=== PATIENT | female | born 1995 | race American Indian/Alaskan Native ===

== ENCOUNTER 2019-04-27 14:29 | Emergency (ER) | payer OTHER ==
--- NOTE | 2019-04-27 15:04 | Event Note ---
ED Screening Note Date of service: 04/27/19 Time: 15:00 ED Screening Note: 23 y o female at 13 weeks gestation presents for syncopal episode at work today cc of n/v x 1 week no pelvic pain or vag bleed This initial assessment/diagnostic orders/clinical plan/treatment(s) is/are subject to change based on patients health status, clinical progression and re- assessment by fellow clinical providers in the ED. Further treatment and workup at subsequent clinical providers discretion. Patient/guardian urged not to elope from the ED as their condition may be serious if not clinically assessed and managed. Initial orders include: labs,ua IVF
[2019-04-27 15:35] LABS: Basophils % (Auto) 0.6 % (0.0-1.8); Eosinophils # (Auto) 0.1 K/mm3 (0.0-0.4); Eosinophils % (Auto) 1.5 % (0.0-4.3); Hematocrit 32.3 % (30.3-42.9); Lymphocytes # (Auto) 1.6 K/mm3 (1.2-5.4); Lymphocytes % (Auto) 24.9 % (13.4-35.0); Mean Corpuscular HGB Conc 34 % (30-34); Mean Corpuscular Volume 86 fl (79-97); Monocytes # (Auto) 0.4 K/mm3 (0.0-0.8); Platelet Count 286 K/mm3 (140-440); Red Blood Count 3.77 M/mm3 (3.65-5.03)
[2019-04-27 15:46] LABS: BUN/Creatinine Ratio 13; Blood Urea Nitrogen 8 mg/dL (7-17); Calcium 9.4 mg/dL (8.4-10.2); Hemolysis Index 2
[2019-04-27 16:07] LABS: Bacteria,Urine 1+ /HPF (Negative); Bilirubin,Urine SM (Negative); Blood,Urine NEG (Negative); Color,Urine Amber (Yellow); Mucus,Urine 3+ /HPF
[2019-04-27 16:14] LABS: Ictotest,Urine Negative (Negative)
[2019-04-27] MEDS ORDERED: ACETAMINOPHEN 500 MG TAB PO ONE (20:52)
[2019-04-27] MEDS ORDERED: SODIUM CHLORIDE 0.9% 1000 ML 1,000 ML IV ONE (20:52)
[2019-04-27] MEDS ORDERED: ONDANSETRON 4 MG/2 ML INJ IV ONE (20:52)
--- NOTE | 2019-04-27 21:54 | Ultrasound Report ---
ULTRASOUND OBSTETRIC INDICATION: Vaginal discharge. Clinical Gestational Age (GA): 13 weeks, 6 days TECHNIQUE: Transabdominal. COMPARISON: None available. FINDINGS: There is a single intrauterine . Biparietal Diameter = 2.7 cm = 14 weeks, 5 day(s). Head Circumference = 9.7 cm = 14 weeks, 3 day(s). Abdominal Circumference = 7.7 cm = 14 weeks, 1 day(s). Femur Length = 1.4 cm = 14 weeks, 2 day(s). Average Ultrasound Age (AUA) = 14 weeks, 3 day(s). Heart Rate: 143 beats per minute. Position: transverse. Cervix: closed. Length in cm (if measured): 3.6 Placenta: anterior and free of the os. Amniotic Fluid Volume: normal Maternal Adnexa: No significant abnormality. IMPRESSION: 1. Single, living intrauterine with estimated sonographic age of 14 weeks, 3 day(s). 2. No significant sonographic abnormality. Signer Name: Gilberto Schroeder MD Signed: 04/27/2019 9:50 PM Workstation Name: [id number]
--- NOTE | 2019-04-27 23:19 | Emergency Department Report ---
<ABBIE DIALLO - Last Filed: 04/28/19 01:04> ED Syncope HPI - General Chief Complaint: Syncope Stated Complaint: SYNCOPAL EPISODE/13WKS Time Seen by Provider: 04/27/19 19:47 - History of Present Illness Initial Comments: Ms. Thrasher is a 23 y/o aaf who presents s/p syncope witnessed by family members to day, states syncope lasting more than 5 minutes. there was no predromal event, no loss or body fluids, no seizure or hx of seizure, pt is 13 weeks . G1, P0, A0, pt denies fever or chills, or diarrhea , there is some intermitten n/v, intermittent dizziness, and light headedness with rapid change of position. There is no cough, URI, sinusitis, ear pain, or sob. There is no abdominal pain , no vaginal discharge or bleeding, pt states dizziness with attempt to stand for orthostatic blood pressure, Timing/Prior Episodes: no prior history Precipitating Factors: Positive: lightheadedness, nausea Context: sitting Loss of Consciousness: brief (seconds) Current Symptoms: back to normal - Related Data Allergies/Adverse Reactions: Allergies No Known Allergies Allergy (Verified 04/27/19 14:34) Home Medications: Ambulatory Orders Acetaminophen [Acetaminophen TAB] 650 mg PO Q6HR PRN #30 tablet 04/28/19 Nitrofurantoin Luna/M-Cryst [Macrobid CAP] 100 mg PO BID 7 Days #14 capsule 04/28/19 Ondansetron [Zofran Odt] 4 mg PO Q8HR #21 tab.rapdis 04/28/19 diphenhydrAMINE [Benadryl CAP] 25 mg PO Q8HR PRN #21 capsule 04/28/19 metroNIDAZOLE [metroNIDAZOLE VAGINAL 0.75% gel] 1 applicatio VG QHS 7 Days #1 tube 04/28/19 ED Review of Systems Constitutional: denies: chills, fever Eyes: denies: eye pain, eye discharge, vision change ENT: denies: ear pain, throat pain Respiratory: denies: cough, shortness of breath, wheezing Cardiovascular: denies: chest pain, palpitations Endocrine: no symptoms reported Gastrointestinal: denies: abdominal pain, nausea, diarrhea Genitourinary: denies: urgency, dysuria, discharge Musculoskeletal: denies: back pain, joint swelling, arthralgia Skin: denies: rash, lesions Neurological: denies: headache, weakness, numbness, paresthesias, confusion, vertigo Psychiatric: anxiety Hematological/Lymphatic: denies: easy bleeding, easy bruising ED Past Medical Hx - Past Medical History Previous Medical History?: No - Surgical History Past Surgical History?: Yes Additional Surgical History: Ablation - Social History Smoking Status: Never Smoker Substance Use Type: None - Medications Home Medications: Home Medications Medication Instructions Recorded Confirmed Last Taken Type Acetaminophen [Acetaminophen TAB] 650 mg PO Q6HR PRN #30 tablet 04/28/19 Unknown Rx Nitrofurantoin Luna/M-Cryst 100 mg PO BID 7 Days #14 capsule 04/28/19 Unknown Rx [Macrobid CAP] Ondansetron [Zofran Odt] 4 mg PO Q8HR #21 tab.rapdis 04/28/19 Unknown Rx diphenhydrAMINE [Benadryl CAP] 25 mg PO Q8HR PRN #21 capsule 04/28/19 Unknown Rx metroNIDAZOLE [metroNIDAZOLE 1 applicatio VG QHS 7 Days #1 tube 04/28/19 Unknown Rx VAGINAL 0.75% gel] ED Physical Exam - General Limitations: No Limitations General appearance: alert, in no apparent distress - Head Head exam: Present: atraumatic, normocephalic, normal inspection - Eye Eye exam: Present: normal appearance, PERRL, EOMI Pupils: Present: normal accommodation - ENT ENT exam: Present: mucous membranes moist - Neck Neck exam: Present: normal inspection, full ROM. Absent: tenderness, meningismus, lymphadenopathy, thyromegaly - Expanded Neck Exam Expanded Neck exam: Absent: tenderness, midline deformity, anterior neck swelling, thyroid mass, carotid bruit, tracheal deviation - Respiratory Respiratory exam: Present: normal lung sounds bilaterally. Absent: respiratory distress, wheezes, rales, rhonchi, stridor, chest wall tenderness, prolonged expiratory - Cardiovascular Cardiovascular Exam: Present: regular rate, normal rhythm, normal heart sounds. Absent: systolic murmur, diastolic murmur, rubs, gallop - GI/Abdominal GI/Abdominal exam: Present: soft, normal bowel sounds. Absent: distended, tenderness, guarding, rebound, rigid, bruit, hernia - Rectal Rectal exam: Present: deferred - External exam: Present: normal external exam Speculum exam: Present: erythema, vaginal discharge (white thick maldorous ). Absent: cervical discharge, vaginal bleeding, tissue, laceration Bi-manual exam: Absent: cervical motion tendernes - Extremities Exam Extremities exam: Present: normal inspection, full ROM. Absent: tenderness - Back Exam Back exam: Present: normal inspection, full ROM. Absent: tenderness, CVA tenderness (R), CVA tenderness (L) - Neurological Exam Neurological exam: Present: alert, oriented X3, CN II-XII intact, normal gait, reflexes normal. Absent: motor sensory deficit - Expanded Neurological Exam Expanded Patient oriented to: Present: person, place, time Speech: Present: fluid speech Cranial nerves: EOM's Intact: Normal, Gag Reflex: Normal, Tongue Deviation: Normal, Nystagmus: Normal, Facial Sensation: Normal Cerebellar function: Finger to Nose: Normal Upper motor neuron: [place] Neglect: Normal, Pronator Drift: Normal Motor strength exam: RUE: 5, LUE: 5, RLE: 5, LLE: 5 Best Eye Response ([place]): (4) open spontaneously Best Motor Response ([place]): (6) obeys commands Best Verbal Response ([place]): (5) oriented [place] Total: 15 - Psychiatric Psychiatric exam: Present: normal affect, normal mood - Skin Skin exam: Present: warm, dry, intact, normal color. Absent: rash ED Medical Decision Making - Lab Data Result diagrams: 04/27/19 15:25 04/27/19 15:25 Labs 04/27/19 04/27/19 04/27/19 15:25 15:25 15:25 WBC 6.5 RBC 3.77 Hgb 11.0 Hct 32.3 MCV 86 MCH 29 MCHC 34 RDW 13.0 L Plt Count 286 Lymph % (Auto) 24.9 Luna % (Auto) 6.0 Eos % (Auto) 1.5 Baso % (Auto) 0.6 Lymph # 1.6 Luna # 0.4 Eos # 0.1 Baso # 0.0 Seg Neutrophils % 67.0 Seg Neutrophils # 4.3 Sodium 135 L Potassium 3.9 Chloride 98.8 Carbon Dioxide 20 L Anion Gap 20 BUN 8 Creatinine 0.6 L Estimated GFR > 60 BUN/Creatinine Ratio 13 Glucose 130 H Calcium 9.4 Lipase 49 HCG, Quant 222432 H Urine Color Urine Turbidity Urine pH Ur Specific [place] Urine Protein Urine Glucose (UA) Urine Ketones Urine Blood Urine Nitrite Urine Bilirubin Urine Ictotest Urine Urobilinogen Ur Leukocyte Esterase Urine WBC (Auto) Urine RBC (Auto) U Epithel Cells (Auto) Urine Bacteria (Auto) Urine Mucus 04/27/19 15:34 WBC RBC Hgb Hct MCV MCH MCHC RDW Plt Count Lymph % (Auto) Luna % (Auto) Eos % (Auto) Baso % (Auto) Lymph # Luna # Eos # Baso # Seg Neutrophils % Seg Neutrophils # Sodium Potassium Chloride Carbon Dioxide Anion Gap BUN Creatinine Estimated GFR BUN/Creatinine Ratio Glucose Calcium Lipase HCG, Quant Urine Color [place]pe Urine Turbidity Cloudy Urine pH 6.0 Ur Specific [place] 1.025 Urine Protein 100 mg/dl Urine Glucose (UA) Neg Urine Ketones 20 Urine Blood Neg Urine Nitrite Neg Urine Bilirubin Sm Urine Ictotest Negative Urine Urobilinogen 4.0 Ur Leukocyte Esterase Mod Urine WBC (Auto) 14.0 H Urine RBC (Auto) 9.0 U Epithel Cells (Auto) 24.0 H Urine Bacteria (Auto) 1+ Urine Mucus 3+ - EKG Data Interpretation: normal EKG - Radiology Data Radiology results: report reviewed, image reviewed Ordering Physician: ABBIE DIALLO NP Date of Service: 04/27/19 Procedure(s): US OB >= 14 weeks Fetus Accession Number(s): [id number] cc: ABBIE DIALLO NP ULTRASOUND OBSTETRIC INDICATION: Vaginal discharge. Clinical Gestational Age (GA): 13 weeks, 6 days TECHNIQUE: Transabdominal. COMPARISON: None available. FINDINGS: There is a single intrauterine . Biparietal Diameter = 2.7 cm = 14 weeks, 5 day(s). Head Circumference = 9.7 cm = 14 weeks, 3 day(s). Abdominal Circumference = 7.7 cm = 14 weeks, 1 day(s). Femur Length = 1.4 cm = 14 weeks, 2 day(s). Average Ultrasound Age (AUA) = 14 weeks, 3 day(s). Heart Rate: 143 beats per minute. Position: transverse. Cervix: closed. Length in cm (if measured): 3.6 Placenta: anterior and free of the os. Amniotic Fluid Volume: normal Maternal Adnexa: No significant abnormality. IMPRESSION: 1. Single, living intrauterine with estimated sonographic age of 14 weeks, 3 day(s). 2. No significant sonographic abnormality. Signer Name: Gilberto Schroeder MD Signed: 04/27/2019 9:50 PM Workstation Name: [id number] Transcribed By: LYDIA Dictated By: Gilberto Schroeder MD Electronically Authenticated By: Gilberto Schroeder MD Signed Date/Time: 04/27/192149 DD/ 47 TD/TT: Ordering Physician: ABBIE DIALLO NP Date of Service: 04/27/19 Procedure(s): CT head/brain wo con Accession Number(s): [id number] cc: ABBIE DIALLO NP Examination: CT of the head without contrast Clinical information: Multiple syncopal episodes. Syncope. Comparison: None Technical: Multiple axial CT images of the head were obtained without intravenous contrast. Sagittal and coronal reformats were obtained. All CTs at this facility utilize dose reduction techniques including automated exposure control, iterative reconstruction and weight based dosing when appropriate to reduce patient radiation dose to as low as reasonable achievable. Findings: There is no CT evidence of acute intracranial hemorrhage or large territorial infarct. The ventricular system is normal in size. Evaluation of the calvarium demonstrates no evidence of acute bony abnormality. The visualized paranasal sinuses and mastoid air cells are clear. Impression: 1. No CT evidence of acute intracranial process. Signer Name: Mignon Hays MD Signed: 04/28/2019 12:02 AM Workstation Name: [id number] Transcribed By: WILLIE Dictated By: Mignon Hays MD Electronically Authenticated By: Mignon Hays MD Signed Date/Time: 04/28/19 0002 DD/ 0000 TD/TT: - Medical Decision Making CT Head: normal, no mass no bleed, no abnormality, US: Single IUP 14 weeks and 1 days , FHR: 147 bpm, Ua: pos luek, wbc, h/h normal, there is no vaginal bleeding , vaginal discharge is white thick malodorous, plan: metrodenazole Gel , tylenol, macrobid. pt is currently a/o x 3, ambulatory with steady gait no dizziness no lightheadedness, no n/v no back pain this was likely vegal res ponse. there are no neuro deficits, pt with nad at this time, dc'd to home in stable condition will follow up with pcp in 2-3 days. and OBGYN in 2-3 days. ED Disposition Clinical Impression: Near syncope, Mild dehydration UTI (urinary tract infection) during Qualifiers: Trimester: second trimester Qualified Code(s): O23.42 - Unspecified infection of urinary tract in , second trimester Disposition: DC-01 TO HOME OR SELFCARE Is pt being admited?: No Does the pt Need Aspirin: No Condition: Stable Instructions: Dehydration (ED), Urinary Tract Infection in Women (ED), Near Syncope (ED) Prescriptions: metroNIDAZOLE [metroNIDAZOLE VAGINAL 0.75% gel] 1 applicatio VG QHS 7 Days #1 tube Acetaminophen [Acetaminophen TAB] 650 mg PO Q6HR PRN #30 tablet PRN Reason: Pain diphenhydrAMINE [Benadryl CAP] 25 mg PO Q8HR PRN #21 capsule PRN Reason: dizziness Nitrofurantoin Luna/M-Cryst [Macrobid CAP] 100 mg PO BID 7 Days #14 capsule Ondansetron [Zofran Odt] 4 mg PO Q8HR #21 tab.rapdis Referrals: FRANCHESCA LUCAS MD [Referring] - 3-5 Days Forms: Work/School Release Form(ED) Time of Disposition: :19 <BETHANY PROCTOR P - Last Filed: 04/28/19 01:57> ED Review of Systems ROS: Stated complaint: SYNCOPAL EPISODE/13WKS Other details as noted in HPI ED Course Vital Signs 04/27/19 04/27/19 04/28/19 14:32 14:37 01:34 Temperature 97.8 F 98 F Pulse Rate 76 108 H Respiratory 18 Rate Blood Pressure 102/63 Blood Pressure 96/61 [Left] O2 Sat by Pulse 99 100 Oximetry ED Medical Decision Making - Lab Data Result diagrams: 04/27/19 15:25 04/27/19 15:25 - Medical Decision Making Attestation: Available for consultation Critical care attestation.: If time is entered above; I have spent that time in minutes in the direct care of this critically ill patient, excluding procedure time. ED Disposition Is pt being admited?: No
--- NOTE | 2019-04-28 00:06 | Cat Scan Report ---
Examination: CT of the head without contrast Clinical information: Multiple syncopal episodes. Syncope. Comparison: None Technical: Multiple axial CT images of the head were obtained without intravenous contrast. Sagittal and coronal reformats were obtained. All CTs at this facility utilize dose reduction techniques inc luding automated exposure control, iterative reconstruction and weight based dosing when appropriate to reduce patient radiation dose to as low as reasonable achievable. Findings: There is no CT evidence of acute intracranial hemorrhage or large territorial infarct. The ventricular system is normal in size. Evaluation of the calvarium demonstrates no evidence of acute bony abnormality. The visualized parana lizzie sinuses and mastoid air cells are clear. Impression: 1. No CT evidence of acute intracranial process. Signer Name: Mignon Hays MD Signed: 04/28/2019 12:02 AM Workstation Name: [id number]
[2019-04-28 01:36] VITALS: BP 96/61
== END 2019-04-28 01:36 | disposition home or self-care (01) ==
LOC: EDSEX → ED 14:29
DX: O23.41 Unspecified infection of urinary tract in pregnancy, first trimester (principal); E86.0 Dehydration; R55 Syncope and collapse; Z79.899 Other long term (current) drug therapy; Z3A.14 14 weeks gestation of pregnancy
CPT/HCPCS: 36415; 70450; 76805; 80048; 81001; 83690; 84702; 85025; 87076; 87086; 87186; 87210; 87591; 96361; 96374; 99285; J2405; J7030